=== PATIENT | female | born 1935 | race Caucasian/White ===

== ENCOUNTER → 2016-09-15 | Outpatient (CLI) | payer OTHER | END | disposition home or self-care (01) | LOC: CVU 10:02 | PROVIDERS: ATTEND Internal Medicine Cardiovascular Disease | DX: I74.3 Embolism and thrombosis of arteries of the lower extremities (principal); I82.812 Embolism and thrombosis of superficial veins of left lower extremity | CPT/HCPCS: 93922; 93970 ==